=== PATIENT | female | born 1970 | race Caucasian/White ===

== ENCOUNTER 2022-02-16 13:54 | Outpatient (CLI) | payer BC ==
[2022-02-16 15:10] LABS: Hemoglobin 13.1 g/dL (12.0-15.5); Mean Corpuscular HGB CONC 33.5 g/dL (32.0-36.0); Mean Corpuscular Hemoglobin 26.8 pg (27.0-33.0); Mean Platelet Volume 10.6 fl (7.4-10.4); Platelet Count 593 10x3/uL (150-450); RBC Distribution Width 14.6 % (11.5-14.5); Red Blood Cell (RBC) Count 4.89 10x6/uL (3.90-5.03); White Blood Cell (WBC) Count 11.6 10x3/uL (3.5-10.5)
[2022-02-16 15:20] LABS: Bilirubin Neg (Negative); Blood, Urine Negative (Negative); Clarity Cloudy (Clear); Glucose, Urine (Dipstick) Normal (Negative); Ketone, Urine Negative (Negative); Leukocyte 100 (Negative); Nitrite Negative (Negative); Protein, Urine (Dipstick) 15 mg/dl (Neg-Trace); Urobilinogen Normal mg/dL (Less than 2)
[2022-02-16 15:34] LABS: BHCG - Serum Negative (NEGATIVE); Pregs Control Background? CLEAR/WHITE (CLR/WHITE); Pregs Control Bar Appear? YES (CONTROL BAR)
[2022-02-16 15:38] LABS: Anion Gap 17 mmol/L (10-20); BUN (Urea Nitrogen) 14 mg/dL (9.8-20.1); Calc. Creatinine Clearance 0 mL/min (70-130); Calcium 9.3 mg/dL (7.8-10.44); Carbon Dioxide 23 mmol/L (22-29); Chloride 105 mmol/L (98-107); Estimated GFR 70; Glucose 124 mg/dL (70-105); Potassium 4.2 mmol/L (3.5-5.1); Sodium 141 mmol/L (136-145)
== END 2022-02-16 13:55 | disposition home or self-care (01) ==
LOC: CSHLAB 13:54
PROVIDERS: ATTEND Obstetrics & Gynecology
DX: Z01.818 Encounter for other preprocedural examination (principal); Z20.822 Contact with and (suspected) exposure to COVID-19; D25.9 Leiomyoma of uterus, unspecified; Z85.3 Personal history of malignant neoplasm of breast
CPT/HCPCS: 80048; 81003; 84703; 85027; 87811; 93005; 93010

== ENCOUNTER 2022-02-20 05:23 | Day surgery (SDC) | payer BC ==
[2022-02-16 10:33] VITALS: BMI 44.6
[2022-02-20] MEDS ORDERED: EPINEPHrine 1 MG/ML AMP ONE (06:19)
[2022-02-20] MEDS ORDERED: Bupivacaine PF 0.5% 30 ML VIAL ONE (06:20)
[2022-02-20] MEDS ORDERED: Lidocaine 1% MPF 2 ML VIAL ONE (06:27)
[2022-02-20] MEDS ORDERED: Methylene Blue 50 MG/10 ML AMPUL ONE (06:40)
[2022-02-20] MEDS ORDERED: CEFAZOLIN 2 GM VIAL ONE (07:01)
[2022-02-20] MEDS ORDERED: PROPOFOL 20 ML ONE (07:02)
[2022-02-20] MEDS ORDERED: Fentanyl 100 MCG/2 ML VIAL ONE ×3 (07:02→09:23)
[2022-02-20] MEDS ORDERED: Midazolam HCl 2 mg/2 ml Vial ONE (07:02)
[2022-02-20] MEDS ORDERED: Dexamethasone 4 mg/ml Vial ONE (07:02)
[2022-02-20] MEDS ORDERED: Lidocaine 1% PF 5 ML VIAL ONE (07:02)
[2022-02-20] MEDS ORDERED: Rocuronium Bromide 10 MG/ML (10ML VIAL) ONE (07:02)
[2022-02-20] MEDS ORDERED: Ondansetron PF 4 MG/2 ML Vial ONE (07:02)
[2022-02-20] MEDS ORDERED: Glycopyrrolate 0.2 MG/ML 5 ML SYRINGE ONE (09:11)
[2022-02-20] MEDS ORDERED: Ketorolac Tromethamine 30 MG/ML VIAL ONE (09:16)
[2022-02-20] MEDS ORDERED: Morphine 4 MG/ML VIAL ONE (11:50)
[2022-02-20 11:53] LABS: Hemoglobin 12.8 g/dL (12.0-15.5)
== END 2022-02-20 15:25 | disposition home or self-care (01) ==
LOC: CSHSDC 05:23
PROVIDERS: ATTEND Obstetrics & Gynecology
PROC: 0UT24ZZ Resection of Bilateral Ovaries, Percutaneous Endoscopic Approach (ICD-10-PCS; principal; 2022-02-20)
PROC: 0UT94ZZ Resection of Uterus, Percutaneous Endoscopic Approach (ICD-10-PCS; principal; 2022-02-20)
PROC: 0UT74ZZ Resection of Bilateral Fallopian Tubes, Percutaneous Endoscopic Approach (ICD-10-PCS; principal; 2022-02-20)
DX: D25.9 Leiomyoma of uterus, unspecified (principal); N83.292 Other ovarian cyst, left side; N83.291 Other ovarian cyst, right side; K63.89 Other specified diseases of intestine; E03.9 Hypothyroidism, unspecified; F32.A Depression, unspecified; E66.9 Obesity, unspecified; Z68.41 Body mass index [BMI] 40.0-44.9, adult; Z85.3 Personal history of malignant neoplasm of breast; Z20.822 Contact with and (suspected) exposure to COVID-19; Z79.899 Other long term (current) drug therapy
CPT/HCPCS: 36415; 85014; 85018; 88305; 88307; C1776; J0171; J0690; J1100; J1885; J2250; J2270; J2405; J2704; J3010; Q9968; S0020

== ENCOUNTER 2023-01-03 14:34 | Outpatient (CLI) | payer BC | END 2023-01-03 14:35 | disposition home or self-care (01) | LOC: CSHMAMMO 14:34 | PROVIDERS: ATTEND Internal Medicine Hematology & Oncology | DX: Z12.31 Encounter for screening mammogram for malignant neoplasm of breast (principal); Z85.3 Personal history of malignant neoplasm of breast; Z98.890 Other specified postprocedural states | CPT/HCPCS: 77063; 77067 ==

== ENCOUNTER 2024-05-05 10:47 | Observation (INO) | payer BC ==
[2024-05-05] MEDS ORDERED: fentaNYL 50 mcg/mL 1 mL Vial ONE ×7 (12:56→17:49)
[2024-05-05] MEDS ORDERED: Bupivacaine/Epinephrine 0.25% 30 ML VIAL ONE (14:30)
[2024-05-05] MEDS ORDERED: SUCCINYLCHOLINE/SOD CL,ISO/PF 200 MG/10 ML SYRINGE FS ONE (14:33)
[2024-05-05] MEDS ORDERED: Lidocaine 2% PF 5 ML VIAL ONE (14:33)
[2024-05-05] MEDS ORDERED: Rocuronium Bromide 10 MG/ML (10ML VIAL) ONE (14:33)
[2024-05-05] MEDS ORDERED: CEFAZOLIN 2 GM VIAL ONE (14:42)
[2024-05-05] MEDS ORDERED: SUGAMMADEX SODIUM 200 MG/2 ML VIAL ONE (16:29)
[2024-05-05] MEDS ORDERED: Dextrose 5% in Water 1,000 ML IV PRN (17:16)
[2024-05-05] MEDS ORDERED: Mag-Al 1200 mg/1200 mg/30 ML UDCUP PO PRN (17:16)
[2024-05-05] MEDS ORDERED: Ipratropium/Albuterol 3 ML NEB NEB PRN (17:16)
[2024-05-05] MEDS ORDERED: Ondansetron PF 4 MG/2 ML Vial IVP PRN (17:16)
[2024-05-05] MEDS ORDERED: Calcium Carbonate 500 MG ChewTAB PO PRN (17:16)
[2024-05-05] MEDS ORDERED: Dextrose 50% Abboject 50 ML SYRINGE SLOW IVP PRN (17:16)
[2024-05-05] MEDS ORDERED: Promethazine HCl 25 MG/ML VIAL IM PRN (17:16)
[2024-05-05] MEDS ORDERED: hydrALAZINE 20 MG/ML VIAL SLOW IVP PRN (17:16)
[2024-05-05] MEDS ORDERED: Glucagon 1 MG/ML KIT IM PRN (17:16)
[2024-05-05 18:16] VITALS: BMI 28.1
[2024-05-05] MEDS: D5 1/2 NS w/20 mEq KCL 1,000 ML IV SCH (18:28)
[2024-05-05] MEDS: Famotidine 20 MG TAB PO SCH (20:18)
[2024-05-05] MEDS: Gabapentin 300 MG CAP PO SCH (20:18)
[2024-05-05] MEDS: HYDROcodone/Acetaminophen 10/325 mg Tablet PO PRN (20:19)
[2024-05-05] MEDS: Famotidine/PF 20 mg/2ml Vial SLOW IVP SCH (20:26)
[2024-05-06] MEDS: Ketorolac Tromethamine 30 MG (1 mL) VIAL IVP SCH (00:16)
[2024-05-06 07:47] VITALS: BP 117/67; TEMP 97.8
[2024-05-06] MEDS: Venlafaxine HCl XR 75 MG CAP PO SCH (08:18)
[2024-05-06] MEDS: Enoxaparin 40 MG (0.4 mL) SYRINGE SC SCH (08:19)
[2024-05-06] MEDS: Thyroid 60 MG TAB PO SCH (08:27)
== END 2024-05-06 10:18 | disposition home or self-care (01) ==
LOC: CSHSDC/OP 10:47 → CSHTELE 18:24
PROVIDERS: ADMIT Surgery; ATTEND Surgery
PROC: 0FT44ZZ Resection of Gallbladder, Percutaneous Endoscopic Approach (ICD-10-PCS; principal; 2024-05-05)
DX: K81.0 Acute cholecystitis (principal); K82.A1 Gangrene of gallbladder in cholecystitis; K81.1 Chronic cholecystitis; K21.9 Gastro-esophageal reflux disease without esophagitis; I10 Essential (primary) hypertension; E03.9 Hypothyroidism, unspecified; E66.9 Obesity, unspecified; F32.A Depression, unspecified; Z90.710 Acquired absence of both cervix and uterus; Z85.3 Personal history of malignant neoplasm of breast; Z79.890 Hormone replacement therapy; Z79.899 Other long term (current) drug therapy
CPT/HCPCS: 88304; 94760; C1889; J1650; J1885; J3010; J3480; S2900